=== PATIENT | male | born 1975 | race Caucasian/White ===

== ENCOUNTER 2017-02-13 01:19 | Emergency (ER) | payer SELFPAY ==
[~2017-02-13] VITALS: Ht 175.3 cm; Wt 156.7 kg
[2017-02-13 01:23] VITALS: BP 162/100
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
[2017-02-13] MEDS: IBUPROFEN 800 MG TAB PO ONE (02:06)
[2017-02-13] MEDS ORDERED: IBUPROFEN 800 MG TAB ONE (02:14)
--- NOTE | 2017-02-13 02:30 | NUR ---
PATIENT C/O COLDNESS, PROVIDED BY WARM BLANKET.
--- NOTE | 2017-02-13 04:03 | NUR ---
To Bed 10
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
--- NOTE | 2017-02-13 04:20 | NUR ---
Laceration to back of head cleansed with NS. Marilynn well.
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
[2017-02-13] MEDS: KETOROLAC 60 MG/2 ML VIAL IM ONE (05:08)
[2017-02-13 05:54] VITALS: BP 156/86
--- NOTE | 2017-02-13 05:54 | NUR ---
Patient discharged with v/s stable. Written and verbal after care instructions given and explained. Patient alert, oriented and verbalized understanding of instructions. Ambulatory with steady gait. All questions addressed prior to discharge. ID band removed. Patient advised to follow up with PMD. Rx of NORCO AND MOTRIN given. Patient educated on indication of medication including possible reaction and side effects. Opportunity to ask questions provided and answered.
== END 2017-02-13 05:54 | disposition home or self-care (01) ==
LOC: MED 01:19
DX: S01.01XA Laceration without foreign body of scalp, initial encounter (principal); Y08.89XA Assault by other specified means, initial encounter; Y93.89 Activity, other specified; Y92.89 Other specified places as the place of occurrence of the external cause; Y99.8 Other external cause status
CPT/HCPCS: 12002; 90471; 90715; 96372; 99284; J1885